=== PATIENT | male | born 1950 | race Caucasian/White ===

== ENCOUNTER 2016-05-12 05:02 | Emergency (ER) | payer MEDICARE ==
[2016-05-12 05:35] LABS: BASO % 0.4 % (0.2-1.2); EOS # 0.1 10_X3_uL (0.0-0.5); EOS % 1.9 % (0.8-7.0); GRAN # 5.1 10_X3_uL (1.8-5.4); GRAN % 69.9 % (34.0-67.9); HEMATOCRIT 35.5 % (40-51); LYMPH # 1.1 10_X3_uL (1.3-3.6); LYMPH % 14.7 % (21.8-53.1); MEAN CORPUSCULAR HEMOGLOBIN 30.6 pg (27.0-33.0); MEAN CORPUSCULAR HGB CONC 33.8 g/dL (32.0-36.0); MEAN CORPUSCULAR VOLUME 90.6 fL (79-92); MEAN PLATELET VOLUME 9.3 fl (7.5-11.5); MONO % 13.1 % (5.3-12.2); PLATELET COUNT 258 x10_3/uL (163-337); RED BLOOD COUNT 3.92 x10_6/uL (4.6-6.1); RED CELL DISTRIBUTION WIDTH 14.1 % (11.6-14.4); WHITE BLOOD COUNT 7.3 x10_3/uL (4.2-9.1)
[2016-05-12 05:50] LABS: ALBUMIN 4.1 gm/dL (3.4-5.0); ALKALINE PHOSPHATASE 72 U/L (50-136); ALT/SGPT 16 U/L (7.53-40.17); AST/SGOT 19 U/L (6.66-35.34); BILIRUBIN,TOTAL 0.38 mg/dL (0.0-1.0); BLOOD UREA NITROGEN 8 mg/dL (7-18); CARBON DIOXIDE 24 mmol/L (21-32); CREATININE 0.8 mg/dL (0.6-1.3); GLUCOSE,RANDOM 86 mg/dL (70-99); POTASSIUM 3.7 mmol/L (3.5-5.1); SODIUM 139 mmol/L (136-145); TOTAL PROTEIN 7.2 gm/dL (6.4-8.2)
[2016-05-12 05:58] LABS: ARTERIAL BLD GAS O2 SATURATION 99.4 % (94-98); ARTERIAL BLOOD GAS BASE EXCESS -1.9 mmol/L (-2.0-3.0); ARTERIAL BLOOD GAS HCO3 21.9 mmol/L (22-26); ARTERIAL BLOOD GAS PCO2 36.2 mmHg (35-48)
== END 2016-05-12 07:47 | disposition home or self-care (01) ==
LOC: ER 05:02
PROVIDERS: Internal Medicine
DX: J10.1 Influenza due to other identified influenza virus with other respiratory manifestations (principal); J44.9 Chronic obstructive pulmonary disease, unspecified; R06.00 Dyspnea, unspecified; I10 Essential (primary) hypertension; E03.9 Hypothyroidism, unspecified; K21.9 Gastro-esophageal reflux disease without esophagitis; Z79.899 Other long term (current) drug therapy; Z88.2 Allergy status to sulfonamides; Z88.1 Allergy status to other antibiotic agents
CPT/HCPCS: 36415; 71010; 80053; 82550; 82553; 82803; 83605; 83880; 85025; 85379; 87400; 93005; 94664; 96361; 96374; 99070; 99284; 99285-25; J2930; J7040